=== PATIENT | female | born 1945 | race Caucasian/White ===

== ENCOUNTER 2018-11-10 09:00 | Outpatient (CLI) | payer MEDICARE, OTHER ==
[2018-11-10 10:33] LABS: #Basophils 0.1 thou/uL (0.0-0.2); #Eosinphils 0.1 thou/uL (0.0-0.7); #Lymphocytes 1.7 thou/uL (1.20-3.40); #Monocytes 0.6 thou/uL (0.11-0.59); #Neutrophils 2.6 thou/uL (1.40-6.50); %Basophils 1.3 % (0.0-1.0); %Eosinophils 1.2 % (0.0-10.0); %Lymphocytes 34.3 % (21.0-51.0); %Monocytes 12.5 % (0.0-10.0); %Neutrophils 50.8 % (42.0-75.0); Hemoglobin 12.1 g/dL (12.0-16.0); Mean Corpuscular HGB CONC 33.9 g/dL (32.0-36.0); Mean Corpuscular Hemoglobin 33.6 pg (27.0-31.0); Mean Corpuscular Volume 99.3 fL (78.0-98.0); Mean Platelet Volume 8.1 fL (7.4-10.4); Platelet Count 239 thou/uL (130-400); RBC Distribution Width 12.3 % (11.5-14.5); Red Blood Cell (RBC) Count 3.58 mill/uL (4.20-5.40); White Blood Cell (WBC) Count 5.1 thou/uL (4.8-10.8)
[2018-11-10 10:34] LABS: Prothrombin Time 12.9 SEC (12.0-14.7)
[2018-11-10 10:49] LABS: Anion Gap 13 mmol/L (10-20); BUN (Urea Nitrogen) 17 mg/dL (9.8-20.1); Calc. Creatinine Clearance 0 mL/min (70-130); Calcium 10.3 mg/dL (7.8-10.44); Carbon Dioxide 27 mmol/L (23-31); Chloride 101 mmol/L (98-107); Estimated GFR-MDRD 61; Glucose 92 mg/dL (83-110); Potassium 4.7 mmol/L (3.5-5.1); Sodium 136 mmol/L (136-145)
[2018-11-10 11:38] LABS: Bilirubin Negative (Negative); Blood, Urine Negative (Negative); Glucose, Urine (Dipstick) Negative (Negative); Leukocyte Negative (Negative); Nitrite Negative (Negative); Protein, Urine (Dipstick) Negative (Neg-Trace); Urobilinogen 0.2 mg/dL (Less than 2)
[2018-11-10 11:47] LABS: RBC/HPF 0-3 HPF (0-3); WBC/HPF 0-3 HPF (0-3)
[2018-11-10 11:57] LABS: Clarity Clear (Clear)
[2018-11-10 11:59] LABS: Bacteria/HPF None Seen HPF (None Seen)
== END 2018-11-10 09:01 | disposition home or self-care (01) ==
LOC: LABBT 09:00
PROVIDERS: ATTEND Orthopaedic Surgery
DX: Z01.818 Encounter for other preprocedural examination (principal); M17.0 Bilateral primary osteoarthritis of knee
CPT/HCPCS: 80048; 81001; 85025; 85610; 87081; 87086; 93005; 93010

== ENCOUNTER 2018-11-17 06:40 | Inpatient (IN) | payer MEDICARE, OTHER ==
--- NOTE | 2018-11-14 08:39 | HP ---
HISTORY OF PRESENT ILLNESS: The patient is a 73-year-old female with rheumatoid arthritis with severe progressive arthritic pain in both knees, left greater than right, unresponsive to conservative treatment including injectable Cimzia, nonsteroidal anti-inflammatory medications and cortisone injections. The pain has become progressive, it is now interfering with day-to-day activities including walking, getting dressed, and sleeping. PAST MEDICAL HISTORY: As noted above. The patient also has history of hypertension. She is followed by Dr. Blount for rheumatoid arthritis. CURRENT MEDICATIONS: Include, 1. Cimzia. 2. Meloxicam. 3. Plaquenil. 4. Premarin. 5. Amlodipine. 6. Carvedilol. 7. Clonidine. 8. Hydralazine. 9. Sulfasalazine. 10. Methotrexate. 11. Folic acid. 12. Gabapentin. 13. Multivitamins. She is stopping Cimzia and meloxicam 2 weeks preoperatively. ALLERGIES: SHE HAS NO KNOWN ALLERGIES. FAMILY HISTORY: Otherwise unremarkable. SOCIAL HISTORY: Otherwise unremarkable. REVIEW OF SYSTEMS: Otherwise unremarkable. PHYSICAL EXAMINATION: GENERAL: Reveals a healthy elderly female. HEENT: Unremarkable. NECK: Supple. CHEST: Clear. CARDIAC: Regular rate and rhythm. ABDOMEN: Soft, nontender. PELVIC: Deferred. RECTAL: Deferred. BREAST: Deferred. EXTREMITIES: Pertinent findings related to her knees. There is mild varus deformity bilaterally. There is tenderness and crepitus with medial joint line bilaterally, left greater than right. There are healed arthroscopy puncture sites on the left knee. Range of motion is 5 to 115 degrees bilaterally. There is no instability. Distal pulses are 1+. NEUROVASCULAR: Intact. There is no pain with range of motion of either hip. IMAGING STUDIES: X-rays of both knees reveal [id number] collapse medially with narrowing laterally as well. IMPRESSION: 1. Degenerative arthritis and osteoarthritis, both knees, left symptomatic more than right. 2. History of hypertension. PLAN: Left total knee replacement. She may ultimately require staged right total knee replacement. The nature of the surgery, length of recovery, and potential complications such as infection, loss of motion, incomplete relief, thromboembolic phenomena, neurovascular injury, possible transfusion, and need for revision have been discussed in detail. Job ID: [id number]
[2018-11-17] MEDS ORDERED: Tranexamic Acid 1,000 MG/10 ML VIAL ONE ×2 (07:11→11:23)
[2018-11-17] MEDS ORDERED: Sodium Chloride 0.9% 100 ML ONE (07:11)
[2018-11-17] MEDS ORDERED: Tranexamic Acid 1,000 MG in Sodium Chloride 0.9% 100 ML IVPB SCH ×3 (07:30→13:26)
[2018-11-17] MEDS ORDERED: Vancomycin HCl 1.5 GM in Sodium Chloride 0.9% 250 ML 300 ML IVPB SCH ×2 (07:30→20:00)
[2018-11-17] MEDS ORDERED: Fentanyl 100 MCG/2 ML VIAL ONE ×2 (08:00→11:28)
[2018-11-17] MEDS ORDERED: Lidocaine 1% (PF) 30 ML VIAL ONE (08:00)
[2018-11-17] MEDS ORDERED: Midazolam HCl 2 mg/2 ml Vial ONE (08:00)
[2018-11-17] MEDS ORDERED: Scopolamine 1.5 mg/72 hour Patch ONE (08:06)
[2018-11-17] MEDS ORDERED: Ondansetron PF 4 MG/2 ML Vial IVP PRN ×3 (08:46→13:26)
[2018-11-17] MEDS ORDERED: HYDROcodone/Acetaminophen 10/325 mg Tablet PO PRN ×5 (08:46→13:26)
[2018-11-17] MEDS ORDERED: Promethazine HCl 25 MG/ML VIAL IM PRN ×3 (08:46→11:27)
[2018-11-17] MEDS ORDERED: Ropivacaine HCl/PF 250 ML in Premix Bag 1 BAG NERVE BLCK SCH ×2 (08:46→11:27)
[2018-11-17] MEDS ORDERED: traMADol HCl 50 MG TAB PO PRN ×5 (08:46→13:26)
[2018-11-17] MEDS ORDERED: Zolpidem Tartrate 5 MG TAB PO PRN ×3 (08:46→13:26)
[2018-11-17] MEDS ORDERED: Fentanyl 100 MCG/2 ML VIAL SLOW IVP PRN ×3 (08:47→13:26)
[2018-11-17] MEDS ORDERED: Bupivacaine/Epinephrine 0.25% 30 ML VIAL ONE (09:06)
[2018-11-17] MEDS ORDERED: Promethazine HCl 25 MG/ML VIAL SLOW IVP PRN ×2 (10:39→13:26)
[2018-11-17] MEDS ORDERED: Ondansetron HCl/PF 4 MG/2 ML Vial IVP PRN (10:39)
[2018-11-17] MEDS ORDERED: Fentanyl 100 MCG/2 ML VIAL IV PRN (11:28)
[2018-11-17] MEDS ORDERED: Ketorolac Tromethamine 30 MG/ML VIAL IVP SCH ×2 (12:00)
--- NOTE | 2018-11-17 12:08 | OP ---
DATE OF PROCEDURE: 11/17/2018 PREOPERATIVE DIAGNOSIS: End-stage tricompartmental osteoarthritis, left knee. POSTOPERATIVE DIAGNOSIS: End-stage tricompartmental osteoarthritis, left knee. PROCEDURE PERFORMED: Cemented cruciate sparing computer-assisted navigated left total knee arthroplasty. SURGEON: Harry Friedman MD. AN EMPLOYEE SPONSOR OR ADVOCATE AND: Sami Ramsey PA-C. ANESTHESIA: General via LMA augmented with indwelling adductor canal block and a single-shot anterior sciatic block. COMPONENTS USED: [employer] Triathlon cemented cruciate-sparing, size 4 femoral component with a primary size 4 cemented tibial base plate, 9 mm polyethylene fixed-bearing insert, A29 patellar button. TOURNIQUET TIME: 70 minutes at 300 mmHg. ESTIMATED BLOOD LOSS: Less than 100. INPUT: 1500 mL crystalloid. OUTPUT: 450 mL of clear yellow urine. FINDINGS: End-stage severe degenerative tricompartmental disease, [id number] arthrosis, periarticular osteophyte formation, large serous effusion, hypertrophic synovium, and changes consistent with degenerative genu varum. DRAINS: None. SPECIMENS: None. COMPLICATIONS: None. COUNTS: Correct. INDICATIONS FOR SURGERY: Megan is a 73-year-old white female, who has failed conservative management for left knee pain, which has been amplified with standing and walking for the last 10 to 12 years. She has elected to proceed with a total knee arthroplasty as definitive treatment of her pain. PROCEDURE IN DETAIL: After informed consent was obtained in the preoperative holding area, the patient was taken to the operative suite where general anesthesia was induced. Once adequate level of general anesthesia was obtained, the patient was positioned and a well-padded tourniquet was placed around the left proximal thigh. The left lower extremity was then prepped and draped in the usual sterile fashion. Prior to exsanguination, a time-out was called and all members of the surgical team agreed upon site, surgeon, and patient. The extremity was then exsanguinated and the tourniquet was raised. A midline longitudinal incision was then made directly over the patella extending 2 fingerbreadths above the superior pole of the patella and 2 fingerbreadths inferior to the inferior patellar pole of the patella. Deeper subcutaneous layers were dissected sharply and local bleeding was controlled with Bovie electrocautery. A quad tendon longitudinal split was then made sharply and a median parapatellar arthrotomy was carried out both sharp and with Bovie electrocautery, carried down to 1 fingerbreadth medial to the tibial tubercle. The knee was then placed into flexion and the patella was everted nicely, and a copious fat pad ectomy was performed allowing for greater exposure of the tibia. The computer-assisted distal femoral fiducial was then placed and pinned firmly, and the distal femoral cutting guide was pinned firmly into place. The oscillating saw was then used to remove the appropriate amount of bone. The 4-in-1 cutting block was then placed on the distal femur and the oscillating saw was used to remove the appropriate amount of bone off the anterior, posterior, and chamfer cuts. After completion of bone cuts, the anterior cruciate ligament was resected sharply and the posterior cruciate ligament retractor was placed and the tibia was subluxed for better exposure. Partial meniscectomies were carried out, and the tibial computer-assisted fiducial was pinned, and the cutting guide was placed. Oscillating saw was then used to remove the bone, with Hohmann retractors used to take care and protect the collateral ligaments. After the tibial resection was performed, a laminar hot air furnace installer repairer was placed in between the freshened bone cuts. The knee placed at 90 degrees and further bilateral meniscectomies were carried out, and the curved osteotome and curettage were used to remove any excess bone spurs in the posterior compartment. The trial femoral component, tibial baseplate were placed with the appropriate polyethylene trial insert with an appropriate polyethylene spacer and patellar button. The knee was taken through full range of motion with flexion and extension from 0 to 90 degrees and patellar broach squarely in the trochlea without any squinting or subluxation noted. The knee was also stable to varus and valgus stressing at 0, 15, 45, and 90 degrees of flexion. The drawer was negative. All trial components were then removed and the keel punch was used to provide the appropriate defect in the tibia with a mallet. The freshened bone cuts were copiously irrigated with pulsatile lavage of about 1.5 L to remove all excess debris. The freshened bone cuts were then dried with suction and lap sponge. The knee was placed in flexion and retractors were placed to provide access to all bone cuts. Tobramycin-impregnated methyl methacrylate cement was then placed on the freshened bone cuts and implants which were malleted firmly into place. Curettage and [place] elevators were used to remove any excess bone cement. The knee was placed into full extension and the patellar button was placed under compression, and the cement was allowed to cure. Once completed, the components were again taken through full range of motion and copious irrigation of the knee was carried out with another liter of normal saline. All components were inspected fully with full range of motion and varus and valgus stressing. There was no laxity noted and full extension was observed clinically. Primary closure was accomplished with #2 interrupted Vicryl stitch of the arthrotomy defect. This was oversewn with a #2 running Quill barbed stitch. The subcutaneous layer was then closed with a running 0 barbed Monocryl stitch and skin closure accomplished with a running subcuticular 3-0 Monocryl barbed Quill stitch and augmented with cement on the skin. Tourniquet was lowered. Good spontaneous return of distal pulses was noted clinically and a sterile dressing was applied to the incision. The procedure was terminated without any complications. The patient was awakened in the operative suite and taken to the recovery room in stable condition. Dicated by Sami Ramsey PA-C, for Dr. Harry Friedman. Job ID: [id number]
[2018-11-17 13:10] VITALS: BMI 32.5
[2018-11-17] MEDS ORDERED: cloNIDine 0.1 MG TAB PO PRN ×2 (13:26→14:38)
[2018-11-17] MEDS ORDERED: Acetaminophen 325 MG TAB PO PRN (13:26)
[2018-11-17] MEDS ORDERED: diphenhydrAMINE 25 MG CAP PO PRN (13:26)
--- NOTE | 2018-11-17 13:27 | PDOC.PN ---
- Subjective Encounter Start Date: 11/17/18 Encounter Start Time: 13:00 -: old records requested/rev Patient seen and examined. No new complaints. - Objective MAR Reviewed: Yes Vital Signs & Weight: Vital Signs (12 hours) Temp Pulse Resp BP Pulse Ox 11/17/18 12:50 97.5 F L 59 L 18 161/84 H 95 Weight Weight 178 lb Additional Labs: old labs reviewed from record including CBC, CMP and normal Radiology Reviewed by me: Yes (knee xray reviewed) Phys Exam - Physical Examination Constitutional: NAD HEENT: moist MMs, sclera anicteric Neck: no JVD, supple Respiratory: no wheezing, no rales, no rhonchi Cardiovascular: RRR, no significant murmur, no rub Gastrointestinal: soft, non-tender, no distention, positive bowel sounds Musculoskeletal: no edema, pulses present left knee with dressing, nerve block in place padgett+ Neurological: non-focal, normal sensation, moves all 4 limbs Lymphatic: no nodes Psychiatric: normal affect, A&O x 3 Skin: no rash, normal turgor Dx/Plan (1) Status post total left knee replacement Code(s): Z96.652 - PRESENCE OF LEFT ARTIFICIAL KNEE JOINT Status: Acute (2) Hypertension Code(s): I10 - ESSENTIAL (PRIMARY) HYPERTENSION Status: Chronic (3) Rheumatoid arthritis Code(s): M06.9 - RHEUMATOID ARTHRITIS, UNSPECIFIED Status: Chronic (4) Obesity (BMI 30.0-34.9) Code(s): E66.9 - OBESITY, UNSPECIFIED Status: Chronic - Plan cont current plan of care, PT/OT, DVT proph w/SCDs * continue aspirin for DVT prophylaxis as per protocol * selected home medication reconciled * medication reviewed as below * symptomatic treatment * pain control * code status- full code * PT/OT as per protocol * nerve block as per anesthesia. Review of Systems - Review of Systems ENT: negative: Ear Pain, Ear Discharge, Nose Pain, Nose Discharge, Nose Congestion, Mouth Pain, Mouth Swelling, Throat Pain, Throat Swelling, Other Respiratory: negative: Cough, Dry, Shortness of Breath, Hemoptysis, SOB with Excertion, Pleuritic Pain, Sputum, Wheezing Cardiovascular: negative: chest pain, palpitations, orthopnea, paroxysmal nocturnal dyspnea, edema, light headedness, other Gastrointestinal: negative: Nausea, Vomiting, Abdominal Pain, Diarrhea, Constipation, Melena, Hematochezia, Other Genitourinary: negative: Dysuria, Frequency, Incontinence, Hematuria, Retention , Other Musculoskeletal: negative: Neck Pain, Shoulder Pain, Arm Pain, Back Pain, Hand Pain, Leg Pain, Foot Pain, Other - Medications/Allergies Allergies/Adverse Reactions: Allergies Allergy/AdvReac Type Severity Reaction Status Date / Time infliximab [From Remicade] Allergy Intermediate JOINT Verified 11/10/18 09:11 SWELLING lisinopril Allergy Intermediate FACIAL Verified 11/10/18 09:11 SWELLING duloxetine [From Cymbalta] Allergy Verified 11/17/18 13:03 leflunomide Allergy Verified 11/17/18 13:03 terbinafine Allergy Verified 11/17/18 13:03 Tetanus Vaccines and Toxoid Allergy Verified 11/17/18 13:03 Medications: Current Medications Acetaminophen (Tylenol) 650 mg PO Q4H PRN PRN Reason: Headache/Fever or Pain Hydrocodone Bitart/Acetaminophen ([place] 10/325) 1 tab PO Q4H PRN PRN Reason: Pain (1-3) Hydrocodone Bitart/Acetaminophen ([place] 10/325) 2 tab PO Q4H PRN PRN Reason: PAIN (4-6) Hydrocodone Bitart/Acetaminophen ([place] 10/325) 1 tab PO Q4H PRN PRN Reason: Pain (1-3) Hydrocodone Bitart/Acetaminophen ([place] 10/325) 2 tab PO Q4H PRN PRN Reason: PAIN (4-6) Hydrocodone Bitart/Acetaminophen ([place] 10/325) 1 tab PO Q4H PRN PRN Reason: Moderate Pain (4-6) Hydrocodone Bitart/Acetaminophen ([place] 10/325) 2 tab PO Q4H PRN PRN Reason: Severe Pain (7-10) Amlodipine Besylate (Norvasc) 10 mg PO DAILY [facility] Aspirin (Ecotrin) 81 mg PO BID [facility] Clonidine (Catapres) 0.1 mg PO PRN PRN PRN Reason: Hypertension Diphenhydramine HCl (Benadryl) 25 mg PO Q6H PRN PRN Reason: Itching Fentanyl (Sublimaze) 50 mcg SLOW IVP Q1H PRN PRN Reason: breakthrough pain Fentanyl (Pacu-Sublimaze) 50 mcg SLOW IVP Q10MIN PRN PRN Reason: Moderate to Severe Pain (6-10) Stop: 11/17/18 13:39 Fentanyl (Sublimaze) 50 mcg IV Q1H PRN PRN Reason: Breakthrough Pain Fentanyl (Sublimaze) 50 mcg SLOW IVP Q30MIN PRN PRN Reason: Moderate Pain (4-6) Fentanyl (Sublimaze) 100 mcg SLOW IVP Q1H PRN PRN Reason: Severe Pain (7-10) Ferrous Gluconate (Fergon) 324 mg PO BID [facility] Folic Acid (Folvite) 2 mg PO DAILY [facility] Hydroxychloroquine Sulfate (Plaquenil) 200 mg PO BID [facility] Ropivacaine 250 ml/ Device 250 mls @ 10 mls/hr NERVE BLCK INF [facility] Ropivacaine 250 ml/ Device 250 mls @ 10 mls/hr NERVE BLCK INF [facility] Cefazolin Sodium/Dextrose 2 gm (/ Device) 50 mls @ 100 mls/hr IVPB Q8H [facility] Stop: 11/17/18 21:55 Sodium Chloride (Normal Saline 0.9%) 1,000 mls @ 100 mls/hr IV .Q10H [facility] Tranexamic Acid 1,000 mg/ (Sodium Chloride) 110 mls @ 200 mls/hr IVPB ONE [facility] Vancomycin HCl 1.5 gm/ Sodium (Chloride) 300 mls @ 200 mls/hr IVPB ONE [facility] Stop: 11/17/18 14:55 Iron/Minerals/Multivitamins (Theragran M) 1 tab PO DAILY [facility] Ketorolac Tromethamine (Toradol) 15 mg IVP Q6HR [facility] Stop: 11/19/18 06:01 Ketorolac Tromethamine (Toradol) 15 mg IVP Q6HR [facility] Stop: 11/19/18 06:01 Ketorolac Tromethamine (Toradol) 15 mg IVP Q6HR [facility] Stop: 11/19/18 13:27 Non-Formulary Medication (Calcium Carb, Citrate/Vit D3 [Citracal Calcium + D Slow Release 1200]) 1 tablet PO DAILY [facility] Non-Formulary Medication (Carvedilol [Coreg]) 12.5 mg PO BID [facility] Non-Formulary Medication (Estrogens, Conjugated [Premarin]) 0.9 mg PO DAILY [facility] Non-Formulary Medication (Hydralazine Hcl [Hydralazine Hcl]) 50 mg PO TID [facility] Non-Formulary Medication (Propylene Glycol/Peg 400/Pf [Systane 0.3-0.4% Eye Drop ]) 1 each OP TID [facility] Ondansetron HCl (Zofran) 4 mg IVP Q6H PRN PRN Reason: Nausea/Vomiting Ondansetron HCl (Pacu-Zofran) 4 mg IVP ONE PRN PRN Reason: Nausea/Vomiting Stop: 11/17/18 13:39 Ondansetron HCl (Zofran) 4 mg IVP Q6H PRN PRN Reason: Nausea/Vomiting Ondansetron HCl (Zofran) 4 mg IVP Q6H PRN PRN Reason: Nausea/Vomiting Promethazine HCl (Phenergan) 12.5 mg IM Q4H PRN PRN Reason: Nausea Promethazine HCl (Pacu-Phenergan) 6.25 mg SLOW IVP ONE PRN PRN Reason: Nausea/Vomiting Stop: 11/17/18 13:39 Promethazine HCl (Pacu-Phenergan) 6.25 mg IM ONE PRN PRN Reason: Nausea/Vomiting Stop: 11/17/18 13:39 Promethazine HCl (Phenergan) 12.5 mg IM Q4H PRN PRN Reason: Nausea Promethazine HCl (Phenergan) 12.5 mg SLOW IVP Q4H PRN PRN Reason: Nausea/Vomiting Senna/Docusate Sodium (Senokot S) 2 tab PO BID [facility] Sodium Chloride (Flush - Normal Saline) 10 ml IVF PRN PRN PRN Reason: Saline Flush Sulfasalazine (Azulfidine) 500 mg PO BID [facility] Tramadol HCl (Ultram) 50 mg PO Q6H PRN PRN Reason: Mild Pain (1-3) Tramadol HCl (Ultram) 100 mg PO Q6H PRN PRN Reason: Moderate Pain 4-6 Tramadol HCl (Ultram) 50 mg PO Q6H PRN PRN Reason: Mild Pain (1-3) Tramadol HCl (Ultram) 100 mg PO Q6H PRN PRN Reason: Moderate Pain 4-6 Tramadol HCl (Ultram) 100 mg PO Q6H PRN PRN Reason: Moderate Pain (4-6) Zolpidem Tartrate (Ambien) 5 mg PO HSPRN PRN PRN Reason: Insomnia Zolpidem Tartrate (Ambien) 5 mg PO HSPRN PRN PRN Reason: Insomnia Zolpidem Tartrate (Ambien) 5 mg PO HSPRN PRN PRN Reason: Insomnia
[2018-11-17] MEDS ORDERED: hydrALAZINE 20 MG/ML VIAL SLOW IVP PRN (13:29)
[2018-11-17] MEDS ORDERED: Diabetic Tussin 200 MG/10 ML UDCUP PO PRN (13:29)
[2018-11-17] MEDS ORDERED: Cepastat Lozenges 1 LOZ PO PRN (13:29)
[2018-11-17] MEDS ORDERED: Sodium Chloride 0.65% Nasal 44 ML BOT EA NARE PRN (13:29)
[2018-11-17] MEDS ORDERED: Artificial Tears 18 DROP/0.9 ML EA EYE PRN (13:29)
[2018-11-17] MEDS ORDERED: Loperamide HCl 2 MG CAP PO PRN (13:29)
[2018-11-17] MEDS ORDERED: Bisacodyl 10 MG SUPP PR PRN (13:29)
[2018-11-17] MEDS ORDERED: Carvedilol 25 MG TAB PO SCH (13:30)
[2018-11-17] MEDS ORDERED: Ferrous Gluconate 324 MG TAB PO SCH (13:30)
[2018-11-17] MEDS ORDERED: Aspirin 81 mg Enteric Coated Tablet PO SCH (13:30)
--- NOTE | 2018-11-17 13:40 | RAD ---
LEFT KNEE 2 VIEWS: HISTORY: Postop. FINDINGS: A total knee prosthesis has been placed. There are no signs of fracture. Air and fluid were seen wi thin the soft tissues. IMPRESSION: Total knee prosthesis in good position. POS: [facility]
[2018-11-17] MEDS ORDERED: Calcium Carbonate + Vit D 1 TAB PO SCH (13:45)
[2018-11-17] MEDS ORDERED: Polyethylene Glycol OPTH DROP 15 ML BOT EA EYE SCH (13:45)
[2018-11-17] MEDS ORDERED: Multivitamin W/ Minerals 1 TAB PO SCH (13:45)
[2018-11-17] MEDS ORDERED: Hydroxychloroquine Sulfate 200 MG TAB PO SCH (13:45)
[2018-11-17] MEDS ORDERED: Folic Acid 1 MG TAB PO SCH (13:45)
[2018-11-17] MEDS ORDERED: Amlodipine 10 MG TAB PO SCH (13:45)
[2018-11-17] MEDS ORDERED: Senokot S 8.6-50 MG TAB PO SCH (13:45)
[2018-11-17] MEDS ORDERED: Estrogens, Conjugated 0.3 MG TAB PO SCH (13:45)
[2018-11-17] MEDS ORDERED: sulfaSALAzine 500 MG TAB PO SCH (13:45)
[2018-11-17] MEDS: Sodium Chloride 0.9% 1,000 ML IV SCH (14:09)
[2018-11-17] MEDS: hydrALAZINE 25 MG TAB PO SCH ×3 (14:10→20:58)
[2018-11-17] MEDS: CEFAZOLIN 2 GM in Premix Bag 1 BAG IVPB SCH ×2 (14:20→22:58)
[2018-11-17] MEDS: Ketorolac Tromethamine 30 MG/ML VIAL IVP SCH ×2 (14:22→20:34)
[2018-11-17] MEDS ORDERED: Ropivacaine 0.2% HCl/PF (40 MG/20 ML VIAL) ONE (15:21)
[2018-11-17] MEDS ORDERED: Ropivacaine 0.5% HCl/PF (150 MG/30 ML VIAL) ONE (15:21)
[2018-11-17] MEDS ORDERED: Lidocaine 1% PF 5 ML VIAL ONE (16:05)
[2018-11-17] MEDS ORDERED: PROPOFOL 200 MG/20 ML VIAL ONE (16:05)
[2018-11-17] MEDS ORDERED: Ondansetron PF 4 MG/2 ML Vial ONE (16:05)
[2018-11-17] MEDS: Carvedilol 25 MG TAB PO SCH (20:57)
[2018-11-17] MEDS: Senokot S 8.6-50 MG TAB PO SCH (20:59)
[2018-11-17] MEDS: Aspirin 81 mg Enteric Coated Tablet PO SCH (21:01)
[2018-11-17] MEDS: Hydroxychloroquine Sulfate 200 MG TAB PO SCH (21:01)
[2018-11-17] MEDS: Ferrous Gluconate 324 MG TAB PO SCH (21:01)
[2018-11-17] MEDS: Polyethylene Glycol OPTH DROP 15 ML BOT EA EYE SCH (21:12)
[2018-11-17] MEDS: sulfaSALAzine 500 MG TAB PO SCH (21:12)
[2018-11-18] MEDS: Sodium Chloride 0.9% 1,000 ML IV SCH ×3 (00:22→23:12)
[2018-11-18] MEDS: Ketorolac Tromethamine 30 MG/ML VIAL IVP SCH ×5 (02:18→23:15)
[2018-11-18] MEDS: hydrALAZINE 25 MG TAB PO SCH ×3 (08:21→21:32)
[2018-11-18] MEDS: Multivitamin W/ Minerals 1 TAB PO SCH (08:22)
[2018-11-18] MEDS: sulfaSALAzine 500 MG TAB PO SCH ×2 (08:22→21:33)
[2018-11-18] MEDS: Hydroxychloroquine Sulfate 200 MG TAB PO SCH ×2 (08:22→21:30)
[2018-11-18] MEDS: Folic Acid 1 MG TAB PO SCH (08:22)
[2018-11-18] MEDS: Carvedilol 25 MG TAB PO SCH ×2 (08:23→21:31)
[2018-11-18] MEDS: Senokot S 8.6-50 MG TAB PO SCH ×2 (08:23→21:34)
[2018-11-18] MEDS: Estrogens, Conjugated 0.3 MG TAB PO SCH (08:24)
[2018-11-18] MEDS: Amlodipine 10 MG TAB PO SCH (08:24)
[2018-11-18] MEDS: Ferrous Gluconate 324 MG TAB PO SCH ×2 (08:25→21:30)
[2018-11-18] MEDS: Calcium Carbonate + Vit D 1 TAB PO SCH (08:25)
[2018-11-18] MEDS: Aspirin 81 mg Enteric Coated Tablet PO SCH ×2 (08:25→21:33)
[2018-11-18] MEDS: Polyethylene Glycol OPTH DROP 15 ML BOT EA EYE SCH ×3 (09:10→21:36)
[2018-11-18 09:13] LABS: Hemoglobin 10.8 g/dL (12.0-16.0); Mean Corpuscular HGB CONC 33.7 g/dL (32.0-36.0); Mean Corpuscular Volume 98.1 fL (78.0-98.0); Mean Platelet Volume 8.4 fL (7.4-10.4); Platelet Count 179 thou/uL (130-400); RBC Distribution Width 11.8 % (11.5-14.5); Red Blood Cell (RBC) Count 3.27 mill/uL (4.20-5.40); White Blood Cell (WBC) Count 11.6 thou/uL (4.8-10.8)
--- NOTE | 2018-11-18 10:39 | PDOC.PN ---
- Subjective Encounter Start Date: 11/18/18 Encounter Start Time: 07:50 Patient seen and examined. No new complaints. No overnight events - Objective Resuscitation Status - Order Detail: 11/17/18 13:29 Resuscitation Status Routine Resuscitation Status: FULL: Full Resuscitation MAR Reviewed: Yes Vital Signs & Weight: Vital Signs (12 hours) Temp Pulse Resp BP BP Pulse Ox 11/18/18 08:24 79 154/84 H 11/18/18 08:21 84 154/84 H 11/18/18 08:00 93 L 11/18/18 07:52 98.7 F 79 12 154/84 H 93 L 11/18/18 04:38 99.2 F 73 18 151/79 H 93 L 11/18/18 00:56 99.3 F 74 20 120/62 94 L Weight Admit Weight 178 lb Weight 178 lb I&O: 11/17/18 11/18/18 11/19/18 06:59 06:59 06:59 Intake Total 800 2030 Output Total 1100 350 Balance -300 1680 Result Diagrams: 11/18/18 08:52 Phys Exam - Physical Examination Constitutional: NAD HEENT: PERRLA, moist MMs, sclera anicteric Neck: no JVD, supple Respiratory: no wheezing, no rales, no rhonchi Cardiovascular: RRR, no significant murmur, no rub Gastrointestinal: soft, non-tender, no distention, positive bowel sounds Musculoskeletal: no edema, pulses present left knee with dressing, nerve block in place Neurological: non-focal, normal sensation, moves all 4 limbs Lymphatic: no nodes Psychiatric: normal affect, A&O x 3 Skin: no rash, normal turgor Dx/Plan (1) Status post total left knee replacement Code(s): Z96.652 - PRESENCE OF LEFT ARTIFICIAL KNEE JOINT Status: Acute (2) Hypertension Code(s): I10 - ESSENTIAL (PRIMARY) HYPERTENSION Status: Chronic (3) Rheumatoid arthritis Code(s): M06.9 - RHEUMATOID ARTHRITIS, UNSPECIFIED Status: Chronic (4) Obesity (BMI 30.0-34.9) Code(s): E66.9 - OBESITY, UNSPECIFIED Status: Chronic (5) Anemia, normocytic normochromic Code(s): D64.9 - ANEMIA, UNSPECIFIED Status: Acute - Plan cont current plan of care, PT/OT * continue aspirin for DVT prophylaxis * pain controlled * medically stable * continue PT as per protocol * medication reviewed as below * symptomatic treatment. Review of Systems - Review of Systems ENT: negative: Ear Pain, Ear Discharge, Nose Pain, Nose Discharge, Nose Congestion, Mouth Pain, Mouth Swelling, Throat Pain, Throat Swelling, Other Respiratory: negative: Cough, Dry, Shortness of Breath, Hemoptysis, SOB with Excertion, Pleuritic Pain, Sputum, Wheezing Cardiovascular: negative: chest pain, palpitations, orthopnea, paroxysmal nocturnal dyspnea, edema, light headedness, other Gastrointestinal: negative: Nausea, Vomiting, Abdominal Pain, Diarrhea, Constipation, Melena, Hematochezia, Other Genitourinary: negative: Dysuria, Frequency, Incontinence, Hematuria, Retention , Other Musculoskeletal: negative: Neck Pain, Shoulder Pain, Arm Pain, Back Pain, Hand Pain, Leg Pain, Foot Pain, Other - Medications/Allergies Allergies/Adverse Reactions: Allergies Allergy/AdvReac Type Severity Reaction Status Date / Time infliximab [From Remicade] Allergy Intermediate JOINT Verified 11/10/18 09:11 SWELLING lisinopril Allergy Intermediate FACIAL Verified 11/10/18 09:11 SWELLING duloxetine [From Cymbalta] Allergy Verified 11/17/18 13:03 leflunomide Allergy Verified 11/17/18 13:03 terbinafine Allergy Verified 11/17/18 13:03 Tetanus Vaccines and Toxoid Allergy Verified 11/17/18 13:03 Medications: Current Medications Acetaminophen (Tylenol) 650 mg PO Q4H PRN PRN Reason: Headache/Fever or Pain Hydrocodone Bitart/Acetaminophen ([place] 10/325) 1 tab PO Q4H PRN PRN Reason: Moderate Pain (4-6) Last Admin: 11/18/18 08:08 Dose: 1 tab Hydrocodone Bitart/Acetaminophen ([place] 10/325) 2 tab PO Q4H PRN PRN Reason: Severe Pain (7-10) Amlodipine Besylate (Norvasc) 10 mg PO DAILY [facility] Last Admin: 11/18/18 08:24 Dose: 10 mg Artificial Tears (Tears Naturale) 2 drop EA EYE PRN PRN PRN Reason: Dry Eyes Aspirin (Ecotrin) 81 mg PO BID [facility] Last Admin: 11/18/18 08:25 Dose: 81 mg Bisacodyl (Dulcolax) 10 mg MO DAILYPRN PRN PRN Reason: Constipation Calcium/Vitamin D (Caltrate 600 + Vit D) 1 tab PO QAM [facility] Last Admin: 11/18/18 08:25 Dose: 1 tab Carvedilol (Coreg) 12.5 mg PO BID [facility] Last Admin: 11/18/18 08:23 Dose: 12.5 mg Clonidine (Catapres) 0.1 mg PO Q4H PRN PRN Reason: SBP Greater Than 170 Diphenhydramine HCl (Benadryl) 25 mg PO Q6H PRN PRN Reason: Itching Estrogens Conjugated (Premarin) 0.9 mg PO DAILY [facility] Last Admin: 11/18/18 08:24 Dose: 0.9 mg Fentanyl (Sublimaze) 50 mcg SLOW IVP Q30MIN PRN PRN Reason: Moderate Pain (4-6) Fentanyl (Sublimaze) 100 mcg SLOW IVP Q1H PRN PRN Reason: Severe Pain (7-10) Ferrous Gluconate (Fergon) 324 mg PO BID [facility] Last Admin: 11/18/18 08:25 Dose: 324 mg Folic Acid (Folvite) 2 mg PO DAILY [facility] Last Admin: 11/18/18 08:22 Dose: 2 mg Guaifenesin (Robitussin Sf) 200 mg PO Q4H PRN PRN Reason: Cough Hydralazine HCl (Apresoline) 50 mg PO TID [facility] Last Admin: 11/18/18 08:21 Dose: 50 mg Hydralazine HCl (Apresoline) 10 mg SLOW IVP Q4H PRN PRN Reason: SBP > 180 and HR < 70 Hydroxychloroquine Sulfate (Plaquenil) 200 mg PO BID [facility] Last Admin: 11/18/18 08:22 Dose: 200 mg Ropivacaine 250 ml/ Device 250 mls @ 10 mls/hr NERVE BLCK INF [facility] Sodium Chloride (Normal Saline 0.9%) 1,000 mls @ 100 mls/hr IV .Q10H [facility] Last Admin: 11/18/18 09:10 Dose: Not Given Iron/Minerals/Multivitamins (Theragran M) 1 tab PO DAILY [facility] Last Admin: 11/18/18 08:22 Dose: 1 tab Ketorolac Tromethamine (Toradol) 15 mg IVP Q6H [facility] Stop: 11/19/18 14:01 Last Admin: 11/18/18 08:09 Dose: 15 mg Loperamide HCl (Imodium) 2 mg PO PRN PRN PRN Reason: Diarrhea/Loose Stools Ondansetron HCl (Zofran) 4 mg IVP Q6H PRN PRN Reason: Nausea/Vomiting Promethazine HCl (Phenergan) 12.5 mg IM Q4H PRN PRN Reason: Nausea Promethazine HCl (Phenergan) 12.5 mg SLOW IVP Q4H PRN PRN Reason: Nausea/Vomiting Propylene Glycol (Systane Opth Drop 15ml Bot) 1 drop EA EYE TID [facility] Last Admin: 11/18/18 09:10 Dose: Not Given Senna/Docusate Sodium (Senokot S) 2 tab PO BID [facility] Last Admin: 11/18/18 08:23 Dose: 2 tab Sodium Chloride (Flush - Normal Saline) 10 ml IVF PRN PRN PRN Reason: Saline Flush Last Admin: 11/18/18 08:16 Dose: 10 ml Sodium Chloride ([place] Nasal [place] 0.65%) 0 ml EA NARE QIDPRN PRN PRN Reason: Nasal Congestion Sulfasalazine (Azulfidine) 500 mg PO BID [facility] Last Admin: 11/18/18 08:22 Dose: 500 mg Throat Lozenges (Cepastat Lozenges) 1 rosalinda PO Q2H PRN PRN Reason: Sore Throat Tramadol HCl (Ultram) 50 mg PO Q6H PRN PRN Reason: Mild Pain (1-3) Tramadol HCl (Ultram) 100 mg PO Q6H PRN PRN Reason: Moderate Pain (4-6) Zolpidem Tartrate (Ambien) 5 mg PO HSPRN PRN PRN Reason: Insomnia
[2018-11-18] MEDS: HYDROcodone/Acetaminophen 10/325 mg Tablet PO PRN (13:54)
[2018-11-19] MEDS: Ketorolac Tromethamine 30 MG/ML VIAL IVP SCH ×2 (06:48→12:24)
[2018-11-19] MEDS: HYDROcodone/Acetaminophen 10/325 mg Tablet PO PRN (06:50)
[2018-11-19] MEDS: Sodium Chloride 0.9% 1,000 ML IV SCH (06:56)
[2018-11-19 07:48] VITALS: BP 136/75; TEMP 99.2
[2018-11-19] MEDS: Aspirin 81 mg Enteric Coated Tablet PO SCH (07:54)
[2018-11-19] MEDS: hydrALAZINE 25 MG TAB PO SCH (07:54)
[2018-11-19] MEDS: Folic Acid 1 MG TAB PO SCH (07:54)
[2018-11-19] MEDS: Calcium Carbonate + Vit D 1 TAB PO SCH (07:54)
[2018-11-19] MEDS: Senokot S 8.6-50 MG TAB PO SCH (07:55)
[2018-11-19] MEDS: Carvedilol 25 MG TAB PO SCH (07:55)
[2018-11-19] MEDS: Hydroxychloroquine Sulfate 200 MG TAB PO SCH (07:56)
[2018-11-19] MEDS: Amlodipine 10 MG TAB PO SCH (07:56)
[2018-11-19] MEDS: Multivitamin W/ Minerals 1 TAB PO SCH (07:56)
[2018-11-19] MEDS: sulfaSALAzine 500 MG TAB PO SCH (07:57)
[2018-11-19] MEDS: Ferrous Gluconate 324 MG TAB PO SCH (07:57)
[2018-11-19] MEDS: Estrogens, Conjugated 0.3 MG TAB PO SCH (07:57)
[2018-11-19] MEDS: Polyethylene Glycol OPTH DROP 15 ML BOT EA EYE SCH (08:08)
--- NOTE | 2018-11-19 11:56 | PDOC.PN ---
- Subjective Encounter Start Date: 11/19/18 Encounter Start Time: 07:20 Patient seen and examined. No new complaints. No overnight events - Objective Resuscitation Status - Order Detail: 11/17/18 13:29 Resuscitation Status Routine Resuscitation Status: FULL: Full Resuscitation MAR Reviewed: Yes Vital Signs & Weight: Vital Signs (12 hours) Temp Pulse Resp BP BP BP Pulse Ox 11/19/18 08:00 93 L 11/19/18 07:56 79 136/75 11/19/18 07:54 79 136/75 11/19/18 07:44 99.2 F 79 16 136/75 93 L 11/19/18 04:05 99.0 F 66 18 108/64 92 L 11/19/18 00:03 99.7 F H 76 18 119/69 92 L Weight Admit Weight 178 lb Weight 178 lb I&O: 11/18/18 11/19/18 11/20/18 06:59 06:59 06:59 Intake Total 800 2910 580 Output Total 1100 350 Balance -300 2560 580 Result Diagrams: 11/18/18 08:52 EKG Reviewed by me: Yes Phys Exam - Physical Examination Constitutional: NAD HEENT: moist MMs, sclera anicteric Neck: no JVD, supple Respiratory: no wheezing, no rales, no rhonchi Cardiovascular: RRR, no significant murmur, no rub Gastrointestinal: soft, non-tender, no distention, positive bowel sounds Musculoskeletal: no edema, pulses present Neurological: non-focal, normal sensation Lymphatic: no nodes Psychiatric: normal affect, A&O x 3 Skin: no rash, normal turgor Dx/Plan (1) Status post total left knee replacement Code(s): Z96.652 - PRESENCE OF LEFT ARTIFICIAL KNEE JOINT Status: Acute (2) Hypertension Code(s): I10 - ESSENTIAL (PRIMARY) HYPERTENSION Status: Chronic (3) Rheumatoid arthritis Code(s): M06.9 - RHEUMATOID ARTHRITIS, UNSPECIFIED Status: Chronic (4) Obesity (BMI 30.0-34.9) Code(s): E66.9 - OBESITY, UNSPECIFIED Status: Chronic (5) Anemia, normocytic normochromic Code(s): D64.9 - ANEMIA, UNSPECIFIED Status: Acute - Plan cont current plan of care, PT/OT * medication reviewed as below * symptomatic treatment * stable medically * discharge per primary team. Review of Systems - Review of Systems ENT: negative: Ear Pain, Ear Discharge, Nose Pain, Nose Discharge, Nose Congestion, Mouth Pain, Mouth Swelling, Throat Pain, Throat Swelling, Other Respiratory: negative: Cough, Dry, Shortness of Breath, Hemoptysis, SOB with Excertion, Pleuritic Pain, Sputum, Wheezing Cardiovascular: negative: chest pain, palpitations, orthopnea, paroxysmal nocturnal dyspnea, edema, light headedness, other Gastrointestinal: negative: Nausea, Vomiting, Abdominal Pain, Diarrhea, Constipation, Melena, Hematochezia, Other Genitourinary: negative: Dysuria, Frequency, Incontinence, Hematuria, Retention , Other Musculoskeletal: negative: Neck Pain, Shoulder Pain, Arm Pain, Back Pain, Hand Pain, Leg Pain, Foot Pain, Other - Medications/Allergies Allergies/Adverse Reactions: Allergies Allergy/AdvReac Type Severity Reaction Status Date / Time infliximab [From Remicade] Allergy Intermediate JOINT Verified 11/10/18 09:11 SWELLING lisinopril Allergy Intermediate FACIAL Verified 11/10/18 09:11 SWELLING duloxetine [From Cymbalta] Allergy Verified 11/17/18 13:03 leflunomide Allergy Verified 11/17/18 13:03 terbinafine Allergy Verified 11/17/18 13:03 Tetanus Vaccines and Toxoid Allergy Verified 11/17/18 13:03 Medications: Current Medications Acetaminophen (Tylenol) 650 mg PO Q4H PRN PRN Reason: Headache/Fever or Pain Hydrocodone Bitart/Acetaminophen ([place] 10/325) 1 tab PO Q4H PRN PRN Reason: Moderate Pain (4-6) Last Admin: 11/18/18 08:08 Dose: 1 tab Hydrocodone Bitart/Acetaminophen ([place] 10/325) 2 tab PO Q4H PRN PRN Reason: Severe Pain (7-10) Last Admin: 11/19/18 06:50 Dose: 2 tab Amlodipine Besylate (Norvasc) 10 mg PO DAILY REPLACED BY [facility] Last Admin: 11/19/18 07:56 Dose: 10 mg Artificial Tears (Tears Naturale) 2 drop EA EYE PRN PRN PRN Reason: Dry Eyes Aspirin (Ecotrin) 81 mg PO BID REPLACED BY [facility] Last Admin: 11/19/18 07:54 Dose: 81 mg Bisacodyl (Dulcolax) 10 mg [place] DAILYPRN PRN PRN Reason: Constipation Calcium/Vitamin D (Caltrate 600 + Vit D) 1 tab PO QAM REPLACED BY [facility] Last Admin: 11/19/18 07:54 Dose: 1 tab Carvedilol (Coreg) 12.5 mg PO BID REPLACED BY [facility] Last Admin: 11/19/18 07:55 Dose: 12.5 mg Clonidine (Catapres) 0.1 mg PO Q4H PRN PRN Reason: SBP Greater Than 170 Diphenhydramine HCl (Benadryl) 25 mg PO Q6H PRN PRN Reason: Itching Estrogens Conjugated (Premarin) 0.9 mg PO DAILY REPLACED BY [facility] Last Admin: 11/19/18 07:57 Dose: 0.9 mg Fentanyl (Sublimaze) 50 mcg SLOW IVP Q30MIN PRN PRN Reason: Moderate Pain (4-6) Fentanyl (Sublimaze) 100 mcg SLOW IVP Q1H PRN PRN Reason: Severe Pain (7-10) Ferrous Gluconate (Fergon) 324 mg PO BID REPLACED BY [facility] Last Admin: 11/19/18 07:57 Dose: 324 mg Folic Acid (Folvite) 2 mg PO DAILY REPLACED BY [facility] Last Admin: 11/19/18 07:54 Dose: 2 mg Guaifenesin (Robitussin Sf) 200 mg PO Q4H PRN PRN Reason: Cough Hydralazine HCl (Apresoline) 50 mg PO TID REPLACED BY [facility] Last Admin: 11/19/18 07:54 Dose: 50 mg Hydralazine HCl (Apresoline) 10 mg SLOW IVP Q4H PRN PRN Reason: SBP > 180 and HR < 70 Hydroxychloroquine Sulfate (Plaquenil) 200 mg PO BID REPLACED BY [facility] Last Admin: 11/19/18 07:56 Dose: 200 mg Ropivacaine 250 ml/ Device 250 mls @ 10 mls/hr NERVE BLCK INF REPLACED BY [facility] Last Admin: 11/18/18 15:27 Dose: 250 mls Sodium Chloride (Normal Saline 0.9%) 1,000 mls @ 100 mls/hr IV .Q10H REPLACED BY [facility] Last Admin: 11/19/18 06:56 Dose: Not Given Iron/Minerals/Multivitamins (Theragran M) 1 tab PO DAILY REPLACED BY [facility] Last Admin: 11/19/18 07:56 Dose: 1 tab Ketorolac Tromethamine (Toradol) 15 mg IVP Q6HR REPLACED BY [facility] Stop: 11/19/18 18:01 Last Admin: 11/19/18 06:48 Dose: 15 mg Loperamide HCl (Imodium) 2 mg PO PRN PRN PRN Reason: Diarrhea/Loose Stools Ondansetron HCl (Zofran) 4 mg IVP Q6H PRN PRN Reason: Nausea/Vomiting Promethazine HCl (Phenergan) 12.5 mg IM Q4H PRN PRN Reason: Nausea Promethazine HCl (Phenergan) 12.5 mg SLOW IVP Q4H PRN PRN Reason: Nausea/Vomiting Propylene Glycol (Systane Opth Drop 15ml Bot) 1 drop EA EYE TID REPLACED BY [facility] Last Admin: 11/19/18 08:08 Dose: Not Given Senna/Docusate Sodium (Senokot S) 2 tab PO BID REPLACED BY [facility] Last Admin: 11/19/18 07:55 Dose: 2 tab Sodium Chloride (Flush - Normal Saline) 10 ml IVF PRN PRN PRN Reason: Saline Flush Last Admin: 11/18/18 14:09 Dose: 10 ml Sodium Chloride ([place] Nasal [place] 0.65%) 0 ml EA NARE QIDPRN PRN PRN Reason: Nasal Congestion Sulfasalazine (Azulfidine) 500 mg PO BID REPLACED BY [facility] Last Admin: 11/19/18 07:57 Dose: 500 mg Throat Lozenges (Cepastat Lozenges) 1 rosalinda PO Q2H PRN PRN Reason: Sore Throat Tramadol HCl (Ultram) 50 mg PO Q6H PRN PRN Reason: Mild Pain (1-3) Tramadol HCl (Ultram) 100 mg PO Q6H PRN PRN Reason: Moderate Pain (4-6) Zolpidem Tartrate (Ambien) 5 mg PO HSPRN PRN PRN Reason: Insomnia
--- NOTE | 2018-11-20 15:40 | DIS ---
DATE OF ADMISSION: 11/17/2018 DATE OF DISCHARGE: 11/19/2018 DISCHARGE DISPOSITION: Home. ADMISSION DIAGNOSIS: End-stage tricompartmental osteoarthritis, left knee. DISCHARGE DIAGNOSIS: End-stage tricompartmental osteoarthritis, left knee. PROCEDURE PERFORMED: Left total knee arthroplasty. CONSULTANTS: [facility] Hospitalist. BRIEF CLINICAL HISTORY: The patient was admitted to [facility] and underwent the above elective procedure on the date of admission without intra-, chad-, or postoperative complication. The hospital course was unremarkable. At the time of discharge, the patient is afebrile, ambulatory without assistance utilizing a rolling walker in a full weightbearing fashion, tolerating a regular diet, and voiding without difficulty. The patient's incision is clean and closed without any erythema. DISCHARGE MEDICATIONS: Please see medication reconciliation form. We will be happy to see the patient on an as-needed basis between now and the patient's next scheduled appointment. CONDITION ON DISCHARGE: Stable. PROGNOSIS: Good. Job ID: [id number]
== END 2018-11-19 14:25 | disposition home or self-care (01) | DRG 470 ==
LOC: SDC 06:40 → SJJU 07:12
PROVIDERS: ADMIT Orthopaedic Surgery; ATTEND Orthopaedic Surgery
PROC: 0SRD0J9 Replacement of Left Knee Joint with Synthetic Substitute, Cemented, Open Approach (ICD-10-PCS; principal; 2018-11-17)
PROC: 8E0YXBZ Computer Assisted Procedure of Lower Extremity (ICD-10-PCS; 2018-11-17)
DX: M17.0 Bilateral primary osteoarthritis of knee (principal); M06.9 Rheumatoid arthritis, unspecified; D64.9 Anemia, unspecified; E66.9 Obesity, unspecified; I10 Essential (primary) hypertension; Z68.32 Body mass index [BMI] 32.0-32.9, adult; Z79.899 Other long term (current) drug therapy
CPT/HCPCS: 36415; 85027; C1713; C1776; J0690; J1885; J2001; J2250; J2405; J2704; J2795; J3010; J3370; J3490; J7050

== ENCOUNTER 2019-05-07 09:08 | Outpatient (CLI) | payer MEDICARE, OTHER ==
[2019-05-07 14:09] LABS: #Basophils 0.1 thou/uL (0.0-0.2); #Eosinphils 0.1 thou/uL (0.0-0.7); #Lymphocytes 2.8 thou/uL (1.20-3.40); #Monocytes 0.9 thou/uL (0.11-0.59); #Neutrophils 2.6 thou/uL (1.40-6.50); %Basophils 1.1 % (0.0-1.0); %Eosinophils 1.4 % (0.0-10.0); %Lymphocytes 43.7 % (21.0-51.0); %Monocytes 13.5 % (0.0-10.0); %Neutrophils 40.3 % (42.0-75.0); Hemoglobin 13.4 g/dL (12.0-16.0); Mean Corpuscular HGB CONC 32.8 g/dL (32.0-36.0); Mean Corpuscular Hemoglobin 31.3 pg (27.0-31.0); Mean Corpuscular Volume 95.5 fL (78.0-98.0); Mean Platelet Volume 8.3 fL (7.4-10.4); Platelet Count 248 thou/uL (130-400); White Blood Cell (WBC) Count 6.5 thou/uL (4.8-10.8)
[2019-05-07 14:26] LABS: Prothrombin Time 12.7 SEC (12.0-14.7)
[2019-05-07 14:36] LABS: Anion Gap 18 mmol/L (10-20); BUN (Urea Nitrogen) 13 mg/dL (9.8-20.1); Calc. Creatinine Clearance 0 mL/min (70-130); Calcium 10.1 mg/dL (7.8-10.44); Carbon Dioxide 21 mmol/L (23-31); Chloride 103 mmol/L (98-107); Estimated GFR-MDRD 75; Glucose 89 mg/dL (83-110); Potassium 3.6 mmol/L (3.5-5.1); Sodium 138 mmol/L (136-145)
[2019-05-07 14:39] LABS: Bacteria/HPF 4+ HPF (None Seen); Bilirubin Negative (Negative); Blood, Urine Negative (Negative); Clarity Clear (Clear); Glucose, Urine (Dipstick) Normal (Negative); Leukocyte 25 Leu/uL (Negative); Nitrite 2+ (Negative); Protein, Urine (Dipstick) Negative (Neg-Trace); RBC/HPF 0-3 HPF (0-3); Squamous Epithelial 0-3 HPF (0-3); Urobilinogen Normal mg/dL (Less than 2)
--- NOTE | 2019-05-07 16:59 | EKG ---
Test Reason : Blood Pressure : / mmHG Vent. Rate : 076 BPM Atrial Rate : 076 BPM P-R Int : 184 ms QRS Dur : 090 ms QT Int : 422 ms P-R-T Axes : 082 005 048 degrees QTc Int : 474 ms Normal sinus rhythm minimal st abnormality When compared with ECG of 10-NOV-2018 09:36, No significant change was found Confirmed by DR. Nazanin LIAO ([id number]) on 05/07/2019 4:59:07 PM Referred By: ALEXIS Confirmed By:DR. Nazanin LIAO
== END 2019-05-07 09:09 | disposition home or self-care (01) ==
LOC: LABBT 09:08
PROVIDERS: ATTEND Orthopaedic Surgery
DX: Z01.818 Encounter for other preprocedural examination (principal); M06.9 Rheumatoid arthritis, unspecified
CPT/HCPCS: 80048; 81001; 85025; 85610; 87077; 87081; 87086; 87186; 93005; 93010

== ENCOUNTER 2019-05-18 05:28 | Day surgery (SDC) | payer MEDICARE, OTHER ==
--- NOTE | 2019-05-14 09:17 | HP ---
HISTORY OF PRESENT ILLNESS: The patient is a 74-year-old female with a long history of rheumatoid arthritis and degenerative arthritis of both knees, unresponsive to conservative treatment including rest, restriction of activities, anti-inflammatory medications, and injections. She underwent a left total knee replacement in November of 2018 with good results, but continued to have progressive problems with the right knee, which is interfering with walking, getting dressed, and sleeping. PAST MEDICAL HISTORY: As noted above. The patient also has hypertension, previous seizure disorder. MEDICATIONS: She has been on; 1. Amlopidine. 2. Aspirin. 3. Multivitamins. 4. Meloxicam. 5. Methotrexate. 6. Cimzia. She has stopped several weeks preoperatively. ALLERGIES: SHE IS ALLERGIC TO LISINOPRIL, REMICADE, TETANUS TOXOID, . FAMILY HISTORY: Otherwise, unremarkable. SOCIAL HISTORY: Otherwise, unremarkable. REVIEW OF SYSTEMS: Otherwise, unremarkable. The patient lives with her and is otherwise independent. PHYSICAL EXAMINATION: GENERAL: Reveals a healthy elderly female. HEENT: Unremarkable. NECK: Supple. CHEST: Clear. HEART: Regular rate and rhythm. ABDOMEN: Soft and nontender. PELVIC, RECTAL, AND BREAST: Deferred. EXTREMITIES: Pertinent findings are related to the right knee. There is a moderate varus deformity. There is puffiness. No definite effusion. There is tenderness and crepitus over the medial joint line. Range of motion is 5 to 105 degrees. There is no instability. Neurovascular exam is intact. There is good capillary refill. DIAGNOSTIC STUDIES: X-rays of the right knee reveal cyaw-wr-cwla collapse medially. Preoperative urine culture has revealed urinary tract infection from E coli and she has been treated with Levaquin. IMPRESSION: 1. Degenerative arthritis and rheumatoid arthritis, right knee. 2. History of hypertension. 3. Preoperative urinary tract infection secondary to Escherichia coli, treated with Levaquin. 4. Status post left total knee replacement. PLAN: Right total knee replacement. The nature of the surgery, length of recovery, potential complications such as infection, loss of motion, incomplete relief, thromboembolic phenomena, neurovascular injury, delayed wound healing, possible transfusion, and need for revision have been discussed in detail with the patient and her . Job ID: [id number]
[2019-05-18] MEDS ORDERED: Sodium Chloride 0.9% 100 ML ONE (06:03)
[2019-05-18] MEDS ORDERED: Tranexamic Acid 1,000 MG/10 ML VIAL ONE ×2 (06:03→09:03)
[2019-05-18] MEDS ORDERED: Vancomycin 1.5 GRAM/300 ML BAG 1.5 GM/300 ML BAG ONE (06:03)
[2019-05-18] MEDS ORDERED: Midazolam HCl 2 mg/2 ml Vial ONE (06:23)
[2019-05-18] MEDS ORDERED: Lidocaine 1% PF 5 ML VIAL ONE ×2 (06:23→13:51)
[2019-05-18] MEDS ORDERED: Fentanyl 100 MCG/2 ML VIAL ONE ×3 (06:23→09:02)
[2019-05-18] MEDS ORDERED: Lidocaine 1% (PF) 30 ML VIAL ONE (06:24)
[2019-05-18] MEDS ORDERED: Lidocaine 1% w/Epinephrine 1:100K 20 ML VIAL ONE (07:45)
[2019-05-18] MEDS ORDERED: Bupivacaine 0.25% HCL 30 ML VIAL ONE (07:45)
[2019-05-18] MEDS ORDERED: Ropivacaine HCl/PF 250 ML in Premix Bag 1 BAG NERVE BLCK SCH (08:10)
[2019-05-18] MEDS ORDERED: Fentanyl 100 MCG/2 ML VIAL SLOW IVP PRN ×3 (08:10→10:43)
[2019-05-18] MEDS ORDERED: HYDROcodone/Acetaminophen 10/325 mg Tablet PO PRN ×2 (08:10)
[2019-05-18] MEDS ORDERED: traMADol HCl 50 MG TAB PO PRN ×2 (08:10)
[2019-05-18] MEDS ORDERED: Zolpidem Tartrate 5 MG TAB PO PRN ×2 (08:10→10:43)
[2019-05-18] MEDS ORDERED: Promethazine HCl 25 MG/ML VIAL IM PRN ×3 (08:10→09:49)
[2019-05-18] MEDS ORDERED: Ondansetron PF 4 MG/2 ML Vial IVP PRN ×2 (08:10→10:43)
[2019-05-18] MEDS ORDERED: Acetaminophen 325 MG TAB PO PRN ×2 (08:11→10:43)
[2019-05-18] MEDS ORDERED: Ondansetron HCl/PF 4 MG/2 ML Vial IVP PRN ×2 (09:02→09:49)
[2019-05-18] MEDS ORDERED: Promethazine HCl 25 MG/ML VIAL SLOW IVP PRN ×3 (09:02→10:43)
[2019-05-18] MEDS ORDERED: Ketorolac Tromethamine 30 MG/ML VIAL ONE ×2 (09:13→13:51)
[2019-05-18] MEDS ORDERED: Tranexamic Acid 1,000 MG in Sodium Chloride 0.9% 100 ML IVPB SCH ×2 (09:15→09:41)
--- NOTE | 2019-05-18 09:48 | RAD ---
RIGHT KNEE 2 VIEWS: Date: 05/18/2019 HISTORY: Total knee arthroplasty postop. FINDINGS/IMPRESSION: There are recent postop changes of total knee arthroplasty in good position and alignment. Soft tissu e air is present. POS: TPC
[2019-05-18] MEDS ORDERED: PACU-Morphine 4MG/ML VIAL SLOW IVP PRN (09:49)
[2019-05-18] MEDS ORDERED: HYDROmorphone 2 MG/ML VIAL SLOW IVP PRN (09:49)
--- NOTE | 2019-05-18 10:12 | OP ---
DATE OF PROCEDURE: 05/18/2019 DESIGN TECHNOLOGY TEACHER: Chandrika Larson PA-C ANESTHESIA: General plus adductor canal and sciatic nerve blocks. PREOPERATIVE DIAGNOSES: Degenerative arthritis and rheumatoid arthritis, right knee. POSTOPERATIVE DIAGNOSES: Degenerative arthritis and rheumatoid arthritis, right knee. PROCEDURES PERFORMED: Right total knee replacement with computer-assisted navigation with cemented [place] Triathlon components (#3 femoral component, #4 primary tibial baseplate with 11 mm CS plastic insert, and all-plastic A32 patellar component). DESCRIPTION OF PROCEDURE: After satisfactory anesthesia was induced in supine position, sequential compression devices were placed on the nonoperative leg throughout the procedure. The right leg was then prepped and draped in routine sterile fashion. The leg was elevated and exsanguinated with an Esmarch bandage and the tourniquet inflated to 250 mmHg. A gently curved medial parapatellar incision was made, carried down to the subcutaneous tissues and bleeding points controlled with the Bovie cautery. Medial parapatellar arthrotomy was performed. Patella was obtained laterally and portion of the fat pad were excised for exposure. There was marked tricompartmental degenerative arthritis with abundant synovitis consistent with rheumatoid arthritis involving all compartments and large areas of exposed bone. Meniscal remnants and osteophytes were removed. Using the [employer] pinless navigation system and appropriate guides, the distal femoral and proximal tibial articular surfaces were excised with an oscillating saw to accept the trial components. It was felt #3 femoral component and #4 primary tibial baseplate with 11 mm CS plastic insert gave appropriate size, fit, stability, and correction of the preoperative deformity. The patellar articular surface was excised to accept all-plastic A29 patellar component. There was good range of motion and good patellar tracking. The trial components were removed. Subcutaneous tissues and posterior capsule were injected with a mixture of 50% with 0.25% Marcaine and 50% with 1% lidocaine with epinephrine with a total of 50 mL. The knee was copiously irrigated with pulsatile lavage and bony surfaces were thoroughly cleaned and dried. The permanent components were then cemented in a single stage using one pack cement premixed with 1 g of tobramycin powder. Excess cement was removed. There was again good fit and stability of the components. The knee was then copiously irrigated. The medial retinaculum and quadriceps mechanism were closed with interrupted #2 Vicryl and a running #2 Quill. Subcutaneous tissues were closed with running 0 Quill suture and the skin closed with running subcuticular 3-0 Monoderm and SurgiSeal skin adhesive. A sterile bulky compressive dressing was applied. The tourniquet deflated after 72 minutes. The foot promptly pinked up and a sequential compression device was applied to her operated leg. She was awakened, taken to the recovery room in stable condition. There were no apparent intraoperative complications. The estimated blood loss was less than 100 mL. Job ID: [id number]
[2019-05-18] MEDS ORDERED: cloNIDine 0.1 MG TAB PO PRN ×2 (10:43→12:36)
[2019-05-18] MEDS ORDERED: diphenhydrAMINE 25 MG CAP PO PRN (10:43)
[2019-05-18] MEDS: Sodium Chloride 0.9% 1,000 ML IV SCH ×2 (11:49→22:08)
[2019-05-18] MEDS ORDERED: Ketorolac Tromethamine 30 MG/ML VIAL IVP SCH ×2 (12:00)
[2019-05-18 12:13] VITALS: BMI 33.3
[2019-05-18] MEDS ORDERED: hydrALAZINE 20 MG/ML VIAL SLOW IVP PRN (12:36)
[2019-05-18] MEDS: HYDROcodone/Acetaminophen 10/325 mg Tablet PO PRN ×2 (12:45→18:16)
[2019-05-18] MEDS ORDERED: hydrALAZINE 25 MG TAB PO SCH ×2 (13:00)
[2019-05-18] MEDS ORDERED: Bupivacaine HCl 0.5%/Epinephrine 1:200,000/PF 30 ml Vial ONE (13:51)
[2019-05-18] MEDS ORDERED: ePHEDrine/0.9% NaCl/PF SYRINGE 50 mg/10 ml ONE (13:51)
[2019-05-18] MEDS ORDERED: PHENYLEPHRINE-NS 100 MCG/ML 10 ML SYRINGE ONE (13:51)
[2019-05-18] MEDS ORDERED: PROPOFOL 200 MG/20 ML VIAL ONE (13:51)
[2019-05-18] MEDS ORDERED: Ropivacaine 0.2% HCl/PF (40 MG/20 ML VIAL) ONE (13:51)
[2019-05-18] MEDS ORDERED: Ondansetron PF 4 MG/2 ML Vial ONE (13:51)
[2019-05-18] MEDS: Ketorolac Tromethamine 30 MG/ML VIAL IVP SCH ×2 (14:57→21:59)
[2019-05-18] MEDS: CEFAZOLIN 2 GM in Premix Bag 1 BAG IVPB SCH ×2 (14:57→22:00)
[2019-05-18] MEDS: hydrALAZINE 25 MG TAB PO SCH ×2 (15:02→22:00)
[2019-05-18] MEDS ORDERED: Vancomycin 1.5 GRAM/300 ML BAG 1.5 GM in Premix Bag 1 BAG IVPB SCH (18:00)
[2019-05-18] MEDS ORDERED: Vancomycin HCl 1.5 GM in Sodium Chloride 0.9% 250 ML 300 ML IVPB SCH (18:00)
[2019-05-18] MEDS ORDERED: Amlodipine 10 MG TAB PO SCH (21:00)
[2019-05-18] MEDS: Senokot S 8.6-50 MG TAB PO SCH (21:58)
[2019-05-18] MEDS: Aspirin 81 mg Enteric Coated Tablet PO SCH (21:59)
[2019-05-18] MEDS: Folic Acid 1 MG TAB PO SCH (21:59)
[2019-05-18] MEDS: Amlodipine 5 MG TAB PO SCH (22:00)
[2019-05-18] MEDS: sulfaSALAzine 500 MG TAB PO SCH (22:00)
--- NOTE | 2019-05-18 23:24 | PDOC.HOSPP ---
- Subjective Encounter Date: 05/18/19 Encounter Time: 15:00 Subjective: Patient seen and examined for med mngt. Pain controlled. No CP. No new complaints. - Objective Vital Signs & Weight: Vital Signs (12 hours) Pulse BP Pulse Ox 05/18/19 22:00 82 147/76 H 05/18/19 15:02 79 132/73 05/18/19 12:00 94 L Weight Weight 182 lb I&O: 05/17/19 05/18/19 05/19/19 06:59 06:59 06:59 Intake Total 1800 Output Total 500 Balance 1300 Additional Labs: Laboratory Tests 05/07/19 05/07/19 13:48 13:48 Hgb 13.4 Creatinine 0.76 EKG Reviewed by me: Yes (SR) Hospitalist ROS - Review of Systems Respiratory: denies: cough, dry, shortness of breath, hemoptysis, SOB with excertion, pleuritic pain, sputum, wheezing, other Cardiovascular: denies: chest pain, palpitations, orthopnea, paroxysmal noc. dyspnea, edema, light headedness, other - Medication Medications: Active Medications Generic Name Dose Route Start Last Admin Trade Name Freq PRN Reason Stop Dose Admin Hydrocodone Bitart/Acetaminophen 1 tab 05/18/19 10:43 05/18/19 18:16 [place] 10/325 PO 1 tab Q4H PRN Administration Moderate Pain (4-6) Amlodipine Besylate 5 mg 05/18/19 21:00 05/18/19 22:00 Norvasc PO 5 mg BID IAIN Administration Aspirin 81 mg 05/18/19 21:00 05/18/19 21:59 Ecotrin PO 81 mg BID IAIN Administration Folic Acid 1 mg 05/18/19 21:00 05/18/19 21:59 Folvite PO 1 mg BID IAIN Administration Hydralazine HCl 50 mg 05/18/19 15:00 05/18/19 22:00 Apresoline PO 50 mg TID IAIN Administration Sodium Chloride 1,000 mls @ 100 mls/hr 05/18/19 10:43 05/18/19 22:08 Normal Saline 0.9% IV 1,000 mls .Q10H IAIN Administration Ketorolac Tromethamine 15 mg 05/18/19 15:00 05/18/19 21:59 Toradol IVP 05/23/19 15:01 15 mg 0300,0900,1500,2100 IAIN Administration Senna/Docusate Sodium 2 tab 05/18/19 21:00 05/18/19 21:58 Senokot S PO 2 tab BID IAIN Administration Sulfasalazine 1,000 mg 05/18/19 21:00 05/18/19 22:00 Azulfidine PO 1,000 mg BID IAIN Administration - Exam General Appearance: NAD Neck: supple, no JVD Heart: RRR, no gallops Respiratory: CTAB, no rales Gastrointestinal: soft, non-tender, normal bowel sounds Extremities: no cyanosis Hosp A/P - Plan PT/OT, incentive spirometry, DVT proph w/SCDs HTN CKD 2 Obesity BII 33.3 RA Recent UTI - completed Atbx PLAN: Change Amlodipine to 5 mg BID Change Hydralazine to 50 mg TID Cont RA meds Cont supportive care Full code. DPOA - Spouse
[2019-05-19] MEDS: Ketorolac Tromethamine 30 MG/ML VIAL IVP SCH ×4 (04:00→21:01)
[2019-05-19] MEDS: HYDROcodone/Acetaminophen 10/325 mg Tablet PO PRN ×5 (04:15→23:41)
[2019-05-19 05:09] LABS: Hemoglobin 10.2 g/dL (12.0-16.0); Mean Corpuscular HGB CONC 33.2 g/dL (32.0-36.0); Mean Corpuscular Hemoglobin 32.6 pg (27.0-31.0); Mean Corpuscular Volume 98.3 fL (78.0-98.0); Platelet Count 215 thou/uL (130-400); RBC Distribution Width 12.7 % (11.5-14.5); Red Blood Cell (RBC) Count 3.13 mill/uL (4.20-5.40); White Blood Cell (WBC) Count 10.5 thou/uL (4.8-10.8)
[2019-05-19] MEDS: Sodium Chloride 0.9% 1,000 ML IV SCH ×2 (05:43→14:17)
[2019-05-19] MEDS: Aspirin 81 mg Enteric Coated Tablet PO SCH ×2 (08:37→20:53)
[2019-05-19] MEDS: Amlodipine 5 MG TAB PO SCH ×2 (08:38→20:53)
[2019-05-19] MEDS: sulfaSALAzine 500 MG TAB PO SCH ×2 (08:38→20:52)
[2019-05-19] MEDS: hydrALAZINE 25 MG TAB PO SCH ×3 (08:38→20:54)
[2019-05-19] MEDS: Senokot S 8.6-50 MG TAB PO SCH ×2 (08:38→20:57)
[2019-05-19] MEDS: Multivitamin W/ Minerals 1 TAB PO SCH (08:48)
[2019-05-19] MEDS: Folic Acid 1 MG TAB PO SCH ×2 (08:49→20:53)
[2019-05-19] MEDS: traMADol HCl 50 MG TAB PO PRN ×2 (10:09→20:58)
[2019-05-19] MEDS: Calcium Carbonate + Vit D 250 MG TAB PO SCH (11:11)
--- NOTE | 2019-05-19 20:12 | PDOC.HOSPP ---
- Subjective Encounter Date: 05/19/19 Encounter Time: 19:00 Subjective: Patient seen and examined for med mngt. No CP. No new complaints. No overnight events - Objective Vital Signs & Weight: Vital Signs (12 hours) Temp Pulse Resp BP Pulse Ox 05/19/19 15:57 98.1 F 76 20 183/81 H 92 L 05/19/19 14:11 76 05/19/19 08:38 76 Weight Admit Weight 182 lb Weight 182 lb I&O: 05/18/19 05/19/19 05/20/19 06:59 06:59 06:59 Intake Total 1800 3660 Output Total 2600 2100 Balance -800 1560 Result Diagrams: 05/19/19 04:20 Hospitalist ROS - Review of Systems Respiratory: denies: cough, dry, shortness of breath, hemoptysis, SOB with excertion, pleuritic pain, sputum, wheezing, other Cardiovascular: denies: chest pain, palpitations, orthopnea, paroxysmal noc. dyspnea, edema, light headedness, other - Medication Medications: Active Medications Generic Name Dose Route Start Last Admin Trade Name Freq PRN Reason Stop Dose Admin Hydrocodone Bitart/Acetaminophen 1 tab 05/18/19 10:43 05/19/19 08:39 [place] 10/325 PO 1 tab Q4H PRN Administration Moderate Pain (4-6) Hydrocodone Bitart/Acetaminophen 2 tab 05/18/19 10:43 05/19/19 18:52 [place] 10/325 PO 2 tab Q4H PRN Administration Severe Pain (7-10) Amlodipine Besylate 5 mg 05/18/19 21:00 05/19/19 08:38 Norvasc PO 5 mg BID IAIN Administration Aspirin 81 mg 05/18/19 21:00 05/19/19 08:37 Ecotrin PO 81 mg BID IAIN Administration Calcium/Vitamin D 250 mg 05/19/19 09:00 05/19/19 11:11 Oscal + Vit D PO Not Given DAILY IAIN Folic Acid 1 mg 05/18/19 21:00 05/19/19 08:49 Folvite PO 1 mg BID IAIN Administration Ropivacaine 250 ml/ Device 250 mls @ 10 mls/hr 05/18/19 08:10 05/19/19 11:04 NERVE BLCK 05/21/19 08:09 250 mls INF IAIN Administration Sodium Chloride 1,000 mls @ 100 mls/hr 05/18/19 10:43 05/19/19 14:17 Normal Saline 0.9% IV Not Given .Q10H IAIN Iron/Minerals/Multivitamins 1 tab 05/19/19 09:00 05/19/19 08:48 Theragran M PO 1 tab DAILY IAIN Administration Ketorolac Tromethamine 15 mg 05/18/19 15:00 05/19/19 15:55 Toradol IVP 05/23/19 15:01 Not Given 0300,0900,1500,2100 IAIN Senna/Docusate Sodium 2 tab 05/18/19 21:00 05/19/19 08:38 Senokot S PO 2 tab BID IAIN Administration Sulfasalazine 1,000 mg 05/18/19 21:00 05/19/19 08:38 Azulfidine PO 1,000 mg BID IAIN Administration Tramadol HCl 100 mg 05/18/19 10:43 05/19/19 10:09 Ultram PO 100 mg Q6H PRN Administration Moderate Pain (4-6) - Exam General Appearance: NAD Heart: RRR, no gallops Respiratory: no wheezes, no rales Gastrointestinal: soft, non-distended Hosp A/P - Plan HTN CKD 2 Obesity BII 33.3 RA Recent UTI - completed Atbx PLAN: Cont Amlodipine 5 mg BID Increase Hydralazine to 75 mg TID Cont other meds for RA Cont Clonidine PRN
[2019-05-20] MEDS: Sodium Chloride 0.9% 1,000 ML IV SCH (01:57)
[2019-05-20] MEDS: traMADol HCl 50 MG TAB PO PRN ×2 (03:35→13:57)
[2019-05-20] MEDS: Ketorolac Tromethamine 30 MG/ML VIAL IVP SCH ×2 (03:35→08:41)
[2019-05-20 07:44] VITALS: TEMP 98
[2019-05-20] MEDS: HYDROcodone/Acetaminophen 10/325 mg Tablet PO PRN ×2 (08:37→12:35)
[2019-05-20] MEDS: Multivitamin W/ Minerals 1 TAB PO SCH (08:39)
[2019-05-20] MEDS: sulfaSALAzine 500 MG TAB PO SCH (08:39)
[2019-05-20] MEDS: Aspirin 81 mg Enteric Coated Tablet PO SCH (08:39)
[2019-05-20] MEDS: hydrALAZINE 25 MG TAB PO SCH (08:40)
[2019-05-20] MEDS: Amlodipine 5 MG TAB PO SCH (08:40)
[2019-05-20] MEDS: Senokot S 8.6-50 MG TAB PO SCH (08:40)
[2019-05-20] MEDS: Calcium Carbonate + Vit D 250 MG TAB PO SCH (08:41)
[2019-05-20] MEDS: Folic Acid 1 MG TAB PO SCH (08:41)
[2019-05-20 14:01] VITALS: BP 178/76
== END 2019-05-20 14:14 | disposition home or self-care (01) ==
LOC: SDC 05:28 → SJJU 07:09 → SDC 05-20 14:14
PROVIDERS: ATTEND Orthopaedic Surgery
PROC: 3E0T3BZ Introduction of Anesthetic Agent into Peripheral Nerves and Plexi, Percutaneous Approach (ICD-10-PCS; principal; 2019-05-18)
PROC: 3E0T3BZ Introduction of Anesthetic Agent into Peripheral Nerves and Plexi, Percutaneous Approach (ICD-10-PCS; 2019-05-18)
PROC: 0SRC0J9 Replacement of Right Knee Joint with Synthetic Substitute, Cemented, Open Approach (ICD-10-PCS; 2019-05-18)
PROC: 8E0YXBZ Computer Assisted Procedure of Lower Extremity (ICD-10-PCS; 2019-05-18)
DX: M17.11 Unilateral primary osteoarthritis, right knee (principal); M06.861 Other specified rheumatoid arthritis, right knee; G89.18 Other acute postprocedural pain; I12.9 Hypertensive chronic kidney disease with stage 1 through stage 4 chronic kidney disease, or unspecified chronic kidney disease; N18.2 Chronic kidney disease, stage 2 (mild); G40.909 Epilepsy, unspecified, not intractable, without status epilepticus; E66.9 Obesity, unspecified; Z68.33 Body mass index [BMI] 33.0-33.9, adult; Z79.82 Long term (current) use of aspirin; Z79.899 Other long term (current) drug therapy; Z88.7 Allergy status to serum and vaccine; Z88.8 Allergy status to other drugs, medicaments and biological substances; Z96.652 Presence of left artificial knee joint
CPT/HCPCS: 20985; 27447; 64445; 64447; 73560; 85027; 97116 ×3; 97139 ×2; 97150 ×2; 97530 ×2; 98961; C1713; C1776; 36415; J0670; J0690; J1885; J2001; J2250; J2405; J2704; J2795; J3010; J3490; S0020